=== PATIENT | female | born 2005 | race Hispanic/Latino ===

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

== ENCOUNTER 2024-01-28 17:38 | Emergency (ER) | payer SELFPAY ==
[~2024-01-28] VITALS: Ht 160 cm; Wt 63.5 kg
[2024-01-28] MEDS: 0.9%NACL 1000ML 1,000 ML IV SCH (17:59)
[2024-01-28] MEDS: ondanSETRON 4MG INJ IVP ONE (17:59)
[2024-01-28 18:06] LABS: BASOPHILS # (AUTO) 0.03 K/uL (0.00-0.20); BASOPHILS % (AUTO) 0.2 % (0.0-5.0); EOSINOPHILS # (AUTO) 0.08 K/uL (0.00-0.70); EOSINOPHILS % (AUTO) 0.6 % (0.0-8.0); HEMATOCRIT 38.9 % (36-48); IMMATURE GRANULOCYTE ABSOLUTE 0.04 K/uL (0-1); LYMPHOCYTES # (AUTO) 0.6 K/uL (1.0-4.8); MEAN CORPUSCULAR HEMOGLOBIN 27.2 pg (27.0-33.0); MEAN CORPUSCULAR HGB CONC 32.9 g/dL (32.0-36.0); MEAN CORPUSCULAR VOLUME 82.8 fL (80-100); MONOCYTES # (AUTO) 0.6 K/uL (0.1-1.0); MONOCYTES % (AUTO) 4.9 % (3.0-13.0); NEUTROPHILS # (AUTO) 11.2 K/uL (1.8-7.7); PLATELET COUNT (AUTO) 202 K/uL (130-400); RED CELL DISTRIBUTION WIDTH 13.3 % (11.0-15.5); WHITE BLOOD COUNT (AUTO) 12.6 K/uL (4.8-10.8)
[2024-01-28 18:23] LABS: CREATININE 0.8 mg/dL (0.5-1.0); POTASSIUM 3.4 mmol/L (3.5-5.1)
[2024-01-28] MEDS: morPHINE 4 MG SYG IVP ONE (18:44)
[2024-01-28] MEDS ORDERED: IOHEXOL-350 75 ML VIAL IV ONE (18:49)
[2024-01-28 19:13] LABS: ALBUMIN 3.8 g/dL (3.5-5.0); BILIRUBIN,DIRECT 0.1 mg/dL (0.0-0.3); BILIRUBIN,TOTAL 0.6 mg/dL (0.2-1.0); TOTAL PROTEIN, SERUM 7.1 g/dL (6.0-8.3)
[2024-01-28] MEDS: Solu-medROL 125MG VIAL IVP ONE (19:20)
[2024-01-28] MEDS: FAMOTIDINE 20MG VIAL IV ONE (19:21)
[2024-01-28] MEDS: DiphenhydrAMINE HCL 50 MG/ML VIAL IV ONE (19:21)
[2024-01-28 20:18] LABS: APPEARANCE,URINE CLEAR (CLEAR); BILIRUBIN,URINE NEGATIVE (NEGATIVE); COLOR,URINE LIGHT-YELLOW (YELLOW); GLUCOSE, URINE (UA) NEGATIVE (NEGATIVE); KETONES,URINE NEGATIVE (NEGATIVE); LEUKOCYTE ESTERASE ,URINE NEGATIVE Leu/uL (NEGATIVE); NITRATE,URINE 2+ (NEGATIVE); OCCULT BLOOD,URINE NEGATIVE (NEGATIVE); PH,URINE 6.5 (5.0-8.0); PROTEIN,URINE NEGATIVE (NEGATIVE); UROBILINOGEN,URINE 0.2 mg/dL (0.2-1.0)
[2024-01-28 20:33] LABS: ADD UA MICROSCOPIC YES; MUCUS,URINE RARE LPF (None Seen); RBC,URINE 0-1 /HPF (0-1); SQUAMOUS EPITHELIAL CELL,UR RARE /HPF (0-2); WBC,URINE 0-1 /HPF (0-1)
[2024-01-28] MEDS: cefTRIAXone 1G VIAL IVPB ONE (20:50)
[2024-01-28] MEDS ORDERED: NITR100C4 PO (21:09)
[2024-01-28] MEDS ORDERED: DICY20TA2 PO (21:09)
[2024-01-28] MEDS ORDERED: DIPH50 PO (21:09)
[2024-01-28] MEDS ORDERED: ONDA-243 PO (21:09)
[2024-01-28 21:13] VITALS: BP 115/62; PULSE 70; RESP 18; TEMP 98.8; O2SAT 96
== END 2024-01-28 21:27 | disposition home or self-care (01) ==
LOC: EDH 17:38
DX: K52.9 Noninfective gastroenteritis and colitis, unspecified (principal); N39.0 Urinary tract infection, site not specified; N83.201 Unspecified ovarian cyst, right side; L50.9 Urticaria, unspecified; E87.8 Other disorders of electrolyte and fluid balance, not elsewhere classified; R10.2 Pelvic and perineal pain; J45.909 Unspecified asthma, uncomplicated; Z79.899 Other long term (current) drug therapy
CPT/HCPCS: 99285; 74177; 96375; 96374; 96361; 80076; 80048; 84702; 83690; 85025; 87086 ×2; 87186; 83605; 81001; 36415; J1200; J3490; J7030; J2919; J0696; J2405; J2270; Q9967